=== PATIENT | male | born 1980 | race Caucasian/White ===

== ENCOUNTER 2018-07-30 09:57 | Emergency (ER) | payer BC ==
[2018-07-30 10:19] VITALS: BMI 20.3
--- NOTE | 2018-07-30 10:23 | PDOC ---
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 The patient was sleeping when his mother heard him scream from downstairs she went up to see him and noted that he was contracted and on his side, shaking and with labored breathing. The patient takes lamotrigine 150mg but has not taken the medication for 3 days as he was visiting his friends and forgot his medication, however he took his regular dose last night. He complains of some back pain due to muscle contraction but denies headache, neck pain, chest pain, shortness of breath or abdominal pain. He reports a history or recurrent bladder infections with unknown cause. Tob: none Etoh: occasional Rec drugs: none sarah - seizure management - [phone] Past History - Past Medical History Allergies/Adverse Reactions: Allergies Allergy/AdvReac Type Severity Reaction Status Date / Time No Known Allergies Allergy Verified 07/30/18 10:15 Home Medications: Ambulatory Orders Abacavir/Dolutegravir/Lamivudi [Triumeq Tablet] 1 each PO HS 07/30/18 Lamotrigine [Lamictal -] 150 mg PO HS 07/30/18 COPD: No DVT: No Seizures: Yes - Immunization History Immunization Up to Date: Yes - Suicide/Smoking/Psychosocial Hx Smoking History: Unknown if ever smoked Hx Alcohol Use: No Drug/Substance Use Hx: No Substance Use Type: None Review of Systems - Review of Systems Able to Perform ROS?: Yes Is the patient limited Faroese proficient: No Constitutional: No: Chills, Diaphoresis, Fever HEENTM: No: Blurred Vision, Tinnitus, Throat Pain Respiratory: No: Cough, Orthopnea, Shortness of Breath Cardiac (ROS): No: Chest Pain ABD/GI: No: Constipated, Diarrhea, Nausea, Vomiting : No: Burning, Dysuria, Discharge, Hematuria Musculoskeletal: Yes: See HPI Neurological: No: Headache, Numbness, Tingling *Physical Exam - Vital Signs Last Vital Signs Temp Pulse Resp BP Pulse Ox 97.4 F L 93 H 18 105/86 98 07/30/18 10:15 07/30/18 10:15 07/30/18 10:15 07/30/18 10:15 07/30/18 10:15 - Physical Exam Comments: GENERAL: Awake, alert, and fully oriented, in no acute distress HEAD: No signs of trauma, normocephalic, atraumatic EYES: EOMI, sclera anicteric, conjunctiva clear ENT: oropharynx clear without exudates. Moist mucosa NECK: Normal ROM, supple, no lymphadenopathy, JVD, or masses LUNGS: No distress, speaks full sentences, clear to auscultation bilaterally HEART: Regular rate and rhythm, normal S1 and S2, no murmurs, rubs or gallops, peripheral pulses normal and equal bilaterally. ABDOMEN: Soft, nontender, normoactive bowel sounds. No guarding, no rebound. No masses EXTREMITIES : Normal inspection, Normal range of motion, no edema. No clubbing or cyanosis. 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 The patient was sleeping when his mother heard him scream from downstairs she went up to see him and noted that he was contracted and on his side, shaking and with labored breathing. The patient takes lamotrigine 150mg but has not taken the medication for 3 days as he was visiting his friends and forgot his medication, however he took his regular dose last night. DDX including but not limited to: noncompliance vs UTI vs electrolyte abnormality W/U: - cbc, cmp - ua, ucx - lamictal level TX: - lamictal 75mg ED Course: Pt stable and pleasant at bedside. No acute distress. Labs unremarkable 07/30/18 12:27 Pt reassessed. Stable. Lamotrigine 75mg given. Pt agrees to plan to resume home dose and follow up with neurologist. Patient stable for discharge. Given follow up instructions and strict return precautions. Patient expressed understanding and agreed to plan. *DC/Admit/Observation/Transfer Diagnosis at time of Disposition: Seizure - Discharge Dispostion Disposition: HOME Condition at time of disposition: Stable Decision to Admit order: No - Referrals Referrals: ON STAFF,NOT [Primary Care Provider] - - Patient Instructions Printed Discharge Instructions: DI for Seizure Disorder -- Adult Additional Instructions: You were seen in the ED for seizures. In the ED you were evaluated with labwork. Your results were unremarkable. There does not appear to be an acute need for immediate hospitalization. You are advised to follow up with your primary care physician and neurologist within 1 week. Return to the ED immediately if you experience repeat seizures, loss of consciousness, nausea, vomiting, fever, headache, chest pain, shortness of breath. - Post Discharge Activity
--- NOTE | 2018-07-30 10:35 | PDOC ---
Attending Attestation - Resident Resident Name: Ani Landa - ED Attending Attestation I have performed the following: I have examined & evaluated the patient, The case was reviewed & discussed with the resident, I agree w/resident's findings & plan, Exceptions are as noted - HPI HPI: 37 yo M history seizure disorder since childhood presents with seizure. He states that he was away from home for the weekend visiting his significant other , forgot his meds at home. He just resumed his normal dose of lamictal (150 mg qhs) last night. Mom noted him having a tonic-clonic seizure this morning. He has no recollection. No aura. He c/o mid-back pain with movement. As per mom, there was not direct trauma, but he was in a contracted state when he seized. - Physicial Exam PE: GENERAL: Awake, alert, and fully oriented, in no acute distress HEAD: No signs of trauma EYES: PERRLA, EOMI, sclera anicteric, conjunctiva clear ENT: Auricles normal inspection, hearing grossly normal, nares patent, oropharynx clear without exudates. Moist mucosa NECK: Normal ROM, supple, no lymphadenopathy, JVD, or masses LUNGS: Breath sounds equal, clear to auscultation bilaterally. No wheezes, and no crackles HEART: Regular rate and rhythm, normal S1 and S2, no murmurs, rubs or gallops ABDOMEN: Soft, nontender, normoactive bowel sounds. No guarding, no rebound. No masses EXTREMITIES: Normal range of motion, no edema. No clubbing or cyanosis. No cords, erythema, or tenderness NEUROLOGICAL: Cranial nerves II through XII grossly intact. Normal speech, normal gait SKIN: Warm, Dry, normal turgor, no rashes or lesions noted. SPINE: No midline tenderness, no stepoffs. No visible trauma. - Medical Decision Making Breakthrough seizure likely due to missing medication over the weekend. Attempted to reach patient's neurologist, however, no answer at the main number and no answering service available. Left voicemail for callback. I contacted Dr. Wills via phone to advise whether patient should wait until tonight's dose or to give additional dose. Recommended 75 mg in ED, then resume normal dosing tonight. F/u with his neurologist.
[2018-07-30 10:39] LABS: EOS % 10.3 % (0-4.5); HEMATOCRIT 43.7 % (35.4-49); HEMOGLOBIN 15.3 GM/dL (11.7-16.9); LYMPH % 38.4 % (8-40); MCH 33.7 pg (25.7-33.7); MCHC 34.9 g/dl (32.0-35.9); MEAN CELL VOLUME 96.6 fl (80-96); MEAN PLT VOLUME 7.8 fl (7.5-11.1); MONO % 6.4 % (3.8-10.2); NEUT % 43.9 % (42.8-82.8); PLATELET COUNT 283 K/MM3 (134-434); RBC 4.53 M/mm3 (4.00-5.60); RDW 12.9 % (11.9-15.9); WHITE BLOOD COUNT 5.5 K/mm3 (4.0-10.0)
[2018-07-30 11:12] LABS: ANION GAP 7 MMOL/L (8-16); BLOOD UREA NITROGEN 14 mg/dL (7-18); CALCIUM 8.8 mg/dL (8.5-10.1); CHLORIDE 106 mmol/L (98-107); CO2 27 mmol/L (21-32); GLUCOSE,RANDOM 106 mg/dL (74-106); POTASSIUM 4.3 mmol/L (3.5-5.1); SGOT/AST 35 U/L (15-37); SGPT/ALT 34 U/L (12-78); SODIUM 140 mmol/L (136-145)
[2018-07-30 11:14] LABS: ALK PHOS 74 U/L (45-117); BILIRUBIN,TOTAL 0.4 mg/dL (0.2-1.0); TOT PROT 7.2 g/dl (6.4-8.2)
[2018-07-30 11:21] LABS: URINE APPEARANCE CLOUDY; URINE BILIRUBIN NEGATIVE (<2.0 mg/dL); URINE COLOR YELLOW; URINE GLUCOSE (UA) NEGATIVE (NEGATIVE); URINE KETONE NEGATIVE (NEGATIVE); URINE LEUK ESTERASE NEGATIVE (NEGATIVE); URINE NITRITE NEGATIVE (NEGATIVE); URINE PROTEIN NEGATIVE (NEGATIVE); URINE UROBILINOGEN NEGATIVE mg/dL (0.2-1.0)
[2018-07-30] MEDS ORDERED: lamoTRIgine 25 MG TABLET PO ONE (12:26)
[2018-07-30] MEDS ORDERED: lamoTRIgine 25 MG TABLET ONE (12:30)
[2018-07-30 12:38] VITALS: BP 111/76; PULSE 60; TEMP 98
--- NOTE | 2018-07-31 17:19 | EKG ---
Test Reason : Blood Pressure : / mmHG Vent. Rate : 088 BPM Atrial Rate : 088 BPM P-R Int : 138 ms QRS Dur : 096 ms QT Int : 364 ms P-R-T Axes : 071 016 019 degrees QTc Int : 440 ms NORMAL SINUS RHYTHM WITH SINUS ARRHYTHMIA NORMAL ECG NO PREVIOUS ECGS AVAILABLE Confirmed by MD JUAN C, LUCIAN ([id number]) on 07/31/2018 5:18:47 PM Referred By: Confirmed By:LUCIAN IRIZARRY MD
== END 2018-07-30 12:40 | disposition home or self-care (01) ==
LOC: JER 09:57
DX: R56.1 Post traumatic seizures (principal); Z87.820 Personal history of traumatic brain injury; Z21 Asymptomatic human immunodeficiency virus [HIV] infection status
CPT/HCPCS: 36415; 80053; 80175; 81003; 85025; 87086; 93005; 93010; 99283-25